=== PATIENT | female | born 1990 ===

== ENCOUNTER → 2019-07-09 | Outpatient (CLI) | payer OTHER | END | disposition home or self-care (01) | LOC: OLS 11:00 → LAB SHORT 11:00 → LAB FUT 07-06 10:45 | DX: Z00.00 Encounter for general adult medical examination without abnormal findings (principal) | CPT/HCPCS: 87177; 87209 ==

== ENCOUNTER → 2019-07-13 | Outpatient (CLI) | payer OTHER | END | disposition home or self-care (01) | LOC: LAB SHORT 13:30 → OLS 13:30 | DX: Z00.00 Encounter for general adult medical examination without abnormal findings (principal) | CPT/HCPCS: 87177; 87209 ==

== ENCOUNTER → 2020-03-22 | Outpatient (CLI) | payer BC | END | disposition home or self-care (01) | LOC: LAB SHORT 11:14 → LAB 11:14 | DX: R10.13 Epigastric pain (principal) | CPT/HCPCS: 87338 ==